=== PATIENT | male | born 1950 | race Two or more races ===

== ENCOUNTER → 2017-11-24 | Day surgery (SDC) | payer MEDICARE, OTHER ==
[~2017-11-24] MED LIST: ASPI81TA50 PO; ATOR40TA59 PO; IV RINGERS SOLUTION,LACTATED 1,000 ML IV SCH; LATA2.5D2 EACHEYE; LIDOCAINE 1% PF 2 ML VIAL. ID PRN; METO25TA4 PO; PANT40TA3 PO; PROPOFOL 10,000 MCG/ML (20ML) VIAL IV ONE; PROPOFOL 20 ML IV ONE
[2017-11-24 16:10] VITALS: BP 140/72
== END | disposition home or self-care (01) ==
LOC: SURG 13:54
PROVIDERS: ATTEND Internal Medicine Gastroenterology
DX: K31.89 Other diseases of stomach and duodenum (principal); K22.8 Other specified diseases of esophagus; K21.9 Gastro-esophageal reflux disease without esophagitis; I25.10 Atherosclerotic heart disease of native coronary artery without angina pectoris; F32.9 Major depressive disorder, single episode, unspecified; I25.2 Old myocardial infarction; H40.9 Unspecified glaucoma; Z79.82 Long term (current) use of aspirin; Z79.899 Other long term (current) drug therapy; Z72.89 Other problems related to lifestyle; Z95.5 Presence of coronary angioplasty implant and graft; Z90.49 Acquired absence of other specified parts of digestive tract; Z98.890 Other specified postprocedural states
CPT/HCPCS: 43239; J2704; J7120